=== PATIENT | female | born 1970 | race Caucasian/White ===

== ENCOUNTER 2020-11-22 18:12 | Emergency (ER) | payer OTHER ==
[~2020-11-22 18:12] MED LIST: AMOXICILLIN875 MG PO; DIFLUCAN150 MG PO; MEDROL 4MG DOSEP4 MG PO
[2020-11-22] MEDS ORDERED: AUGMENTIN 875-1 EACH PO (21:43)
[2020-12-16] MEDS ORDERED: COREG 3.125M3.125 MG PO
== END 2020-11-22 21:55 | disposition home or self-care (01) ==
LOC: FER 18:12
DX: S61.451A Open bite of right hand, initial encounter (principal); I10 Essential (primary) hypertension; J44.9 Chronic obstructive pulmonary disease, unspecified; F17.210 Nicotine dependence, cigarettes, uncomplicated; Z88.5 Allergy status to narcotic agent; Z23 Encounter for immunization; W54.0XXA Bitten by dog, initial encounter; Y92.009 Unspecified place in unspecified non-institutional (private) residence as the place of occurrence of the external cause
CPT/HCPCS: 73120; 90471; 90715

== ENCOUNTER 2020-11-27 22:08 | Emergency (ER) | payer OTHER ==
[~2020-11-27 22:08] MED LIST changes: +AUGMENTIN 875-1 EACH PO
[2020-11-27 23:29] LABS: BASOPHIL 0.7 % (0-2); HCT 45.2 % (37.0-47.0); HGB 14.8 g/dl (12.5-16.0); LYMPHOCYTE 13.2 % (15-48); MCHC 32.7 g/dL (32.0-36.0); MCV 82.5 fL (78.0-100.0); MONOCYTE 8.8 % (0-12); MPV 12.4 fL (6.0-9.5); NRBC 0; PLT 244 K/uL (150-400); RBC 5.48 M/uL (4.20-5.40); RDW 14.6 % (11.5-14.0); WBC 13.4 K/uL (4.0-10.5)
[2020-11-27 23:38] LABS: ALBUMIN 3.3 g/dL (3.4-5.0); BILIRUBIN - TOTAL 0.3 mg/dL (0.2-1.0); BUN/CREAT RATIO (CALC) 34.6 RATIO; CREATININE 0.78 mg/dL (0.51-0.95); GLOBULIN (CALCULATION) 3.8 g/dL; POTASSIUM 3.3 mmol/L (3.5-5.1); TOTAL PROTEIN 7.1 g/dL (6.4-8.2)
[2020-11-27 23:44] LABS: LACTIC ACID 1.5 mmol/L (0.4-1.9)
[2020-11-28 01:11] LABS: BILIRUBIN NEGATIVE (NEGATIVE); BLOOD TRACE-INTACT Ery/uL (NEGATIVE); CLARITY CLEAR (CLEAR); COLOR YELLOW (YELLOW); GLUCOSE (U) NORMAL (NORMAL); LEUKOCYTES TRACE Leu/uL (NEGATIVE); NITRITE NEGATIVE (NEGATIVE); PROTEIN NEGATIVE (NEGATIVE); UROBILINOGEN 0.2 mg/dL (0.2-1.0)
[2020-11-28 01:21] LABS: SQUAMOUS EPITHELIAL CELLS RARE
[2020-11-28] MEDS ORDERED: BENTYL10 MG PO ×2 (02:56→02:59)
[2020-12-16] MEDS ORDERED: COREG 3.125M3.125 MG PO
== END 2020-11-28 03:10 | disposition home or self-care (01) ==
LOC: FER 22:08
PROVIDERS: Emergency Medicine Emergency Medical Services
DX: R10.84 Generalized abdominal pain (principal); I10 Essential (primary) hypertension; J44.9 Chronic obstructive pulmonary disease, unspecified; R11.2 Nausea with vomiting, unspecified; F17.210 Nicotine dependence, cigarettes, uncomplicated; Z88.8 Allergy status to other drugs, medicaments and biological substances; Z88.5 Allergy status to narcotic agent; Z79.899 Other long term (current) drug therapy
CPT/HCPCS: 36415; 74018; 80053; 81001; 83605; 83690; 85025; J2270; J2405; J7120

== ENCOUNTER 2020-12-16 16:29 | Day surgery (SDCO) | payer OTHER ==
[~2020-12-16] VITALS: Ht 152.4 cm; Wt 60.8 kg
[~2020-12-16 16:29] MED LIST changes: +BENTYL10 MG PO; +COREG 3.125M3.125 MG PO
[2020-12-16 19:20] LABS: BASOPHIL 0.5 % (0-2); EOSINOPHIL 0 % (0-5); HCT 42.6 % (37.0-47.0); HGB 14.5 g/dl (12.5-16.0); LYMPHOCYTE 15.4 % (15-48); MCH 27.2 pg (25.0-31.0); MCV 79.9 fL (78.0-100.0); MONOCYTE 9.9 % (0-12); MPV 12.9 fL (6.0-9.5); NEUTROPHIL 73.4 % (41-80); NRBC 0; PLT 144 K/uL (150-400); RBC 5.33 M/uL (4.20-5.40); RDW 14.4 % (11.5-14.0); WBC 3.8 K/uL (4.0-10.5)
[2020-12-16 19:23] LABS: BILIRUBIN NEGATIVE (NEGATIVE); BLOOD 3+ Ery/uL (NEGATIVE); CLARITY CLOUDY (CLEAR); COLOR YELLOW (YELLOW); GLUCOSE (U) NORMAL (NORMAL); LEUKOCYTES 2+ Leu/uL (NEGATIVE); NITRITE POSITIVE (NEGATIVE); PROTEIN 1+ mg/dL (NEGATIVE); SPECIFIC GRAVITY 1.025 (1.001-1.030)
[2020-12-16 19:33] LABS: BACTERIA 2+
[2020-12-16 19:36] LABS: ALBUMIN 2.8 g/dL (3.4-5.0); BILIRUBIN - TOTAL 0.4 mg/dL (0.2-1.0); BUN/CREAT RATIO (CALC) 22.8 RATIO; CREATININE 1.27 mg/dL (0.51-0.95); GLOBULIN (CALCULATION) 4.7 g/dL; POTASSIUM 3.5 mmol/L (3.5-5.1); TOTAL PROTEIN 7.5 g/dL (6.4-8.2)
[2020-12-16 19:39] LABS: LACTIC ACID 1.3 mmol/L (0.4-1.9)
[2020-12-16] MEDS ORDERED: COZAAR100 MG PO (23:58)
[2020-12-17] MEDS ORDERED: LIPITOR40 M1 PO (00:04)
[2020-12-17 03:37] LABS: HCG (URINE) SCREEN NEGATIVE (NEGATIVE)
[2020-12-17 05:57] LABS: BASOPHIL 0.9 % (0-2); EOSINOPHIL 0.3 % (0-5); HCT 37.8 % (37.0-47.0); HGB 12.9 g/dl (12.5-16.0); LYMPHOCYTE 17.9 % (15-48); MCH 27.4 pg (25.0-31.0); MCHC 34.1 g/dL (32.0-36.0); MCV 80.3 fL (78.0-100.0); MONOCYTE 17.9 % (0-12); MPV 12.7 fL (6.0-9.5); NEUTROPHIL 62.7 % (41-80); NRBC 0; PLT 124 K/uL (150-400); RBC 4.71 M/uL (4.20-5.40); RDW 14.3 % (11.5-14.0); WBC 3.3 K/uL (4.0-10.5)
[2020-12-17 06:22] LABS: ALBUMIN 2.4 g/dL (3.4-5.0); BILIRUBIN - TOTAL 0.2 mg/dL (0.2-1.0); BUN/CREAT RATIO (CALC) 24.4 RATIO; CREATININE 0.78 mg/dL (0.51-0.95); GLOBULIN (CALCULATION) 3.9 g/dL; POTASSIUM 3.4 mmol/L (3.5-5.1); TOTAL PROTEIN 6.3 g/dL (6.4-8.2)
[2020-12-17] MEDS ORDERED: LEVAQUIN750 MG PO (11:06)
[2020-12-17] MEDS ORDERED: PEPCID AC20 MG PO (11:13)
[2020-12-17] MEDS ORDERED: ZOFRAN4 M1 SL (11:13)
== END 2020-12-17 14:10 | disposition home or self-care (01) ==
LOC: FER 16:29 → FMS 21:28
PROVIDERS: Emergency Medicine Emergency Medical Services; Nurse Practitioner; ADMIT Internal Medicine
DX: N12 Tubulo-interstitial nephritis, not specified as acute or chronic (principal); N39.0 Urinary tract infection, site not specified; R11.2 Nausea with vomiting, unspecified; N17.9 Acute kidney failure, unspecified; E86.0 Dehydration; E87.1 Hypo-osmolality and hyponatremia; J44.9 Chronic obstructive pulmonary disease, unspecified; I11.9 Hypertensive heart disease without heart failure; I25.10 Atherosclerotic heart disease of native coronary artery without angina pectoris; E78.5 Hyperlipidemia, unspecified; F17.210 Nicotine dependence, cigarettes, uncomplicated; Z95.5 Presence of coronary angioplasty implant and graft; Z88.5 Allergy status to narcotic agent; Z88.8 Allergy status to other drugs, medicaments and biological substances; Z79.899 Other long term (current) drug therapy; Z20.822 Contact with and (suspected) exposure to COVID-19
CPT/HCPCS: 36415; 80053; 81001; 82150; 83605; 83690; 84145; 84703; 85025; 87040; 87088; G0378; J0696; J1170; J1650; J2405; J7030; U0002